=== PATIENT | male | born 1935 | race Caucasian/White ===

== ENCOUNTER 2016-06-25 15:55 | Emergency (ER) | payer MEDICARE, MEDICAID ==
[2016-06-25 16:17] VITALS: BP 169/70
--- NOTE | 2016-06-25 16:41 | EDM.PDOC ---
ED HPI Trauma - General Chief Complaint: Lower Extremity Injury/Pain Stated Complaint: PAIN IN LEG/HIP AREA Time Seen by Provider: 06/25/16 16:30 Source: Reports: Patient, Old records, RN, RN notes reviewed, Other ([facility] home care staff) History Limitations: Reports: Physical impairment (developmentally delayed) - History of Present Illness INITIAL COMMENTS - FREE TEXT/NARRATIVE: Patient is an 80-year-old developmentally delayed/disabled male who resides at the [facility] home. There was an unwitnessed fall 1 to 2 weeks ago after which the patient complained of right leg. He was seen in clinic by Dr. Aguila and had right lower extremity duplex ultrasound, which was negative for DVT. Imaging further revealed advanced chronic arthritic changes. Staff reports that the patient complained of left hip pain beginning yesterday. Continued reporting left hip pain today and refused to bear weight on the hip. They are not aware of any further falls or injuries. Patient is unable to provide any further history. Method of Injury: fall Severity: moderate Pain/Injury Location: Reports: pelvis, lower extremity, left Associated Symptoms: Reports: no other symptoms Allergies/ADRs: Allergies No Known Allergies Allergy (Verified 06/25/16 16:18) Home Medications: Ambulatory Orders Omeprazole [Omeprazole] 20 mg PO DAILY 06/12/14 [Confirmed 03/19/16] Simvastatin [Simvastatin] 20 mg PO DAILY 06/12/14 [Confirmed 03/19/16] Albuterol [Proventil Neb Soln] 2.5 mg NEB Q4H PRN 03/05/16 [Confirmed 03/19/16] Budesonide [Pulmicort] 1 unit INH BID 03/05/16 [Confirmed 03/19/16] Finasteride 5 mg PO DAILY 06/25/16 [Confirmed 06/25/16] Past Medical History Cardiovascular History: Reports: High cholesterol Respiratory History: Reports: COPD, Pneumonia, recurrent, TB, Other (see below) Other Respiratory History: HX OF ASPIRIATION PNEUMONIA Gastrointestinal History: Reports: GERD Genitourinary History: Reports: Prostate disorder Musculoskeletal History: Reports: Other (see below) Other Musculoskeletal History: ROTATOR CUFF TEAR Neurological History: Psychiatric History: Reports: Anxiety, Depression, Developmental delay, Learning disability, Other (see below) Other Psychiatric 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 Endocrine/Metabolic History: Reports: None Hematologic History: Reports: Anemia, Iron deficiency Immunologic History: Reports: None Oncologic (Cancer) History: Reports: Prostate - Infectious Disease History Other Infectious Disease History: unknown hx - Past Surgical History Head Surgeries/Procedures: Reports: None HEENT Surgical History: Reports: Cataract surgery Cardiovascular Surgical History: Reports: None GI Surgical History: Reports: Hernia, inguinal Social & Family History - Family History Family Medical History: Noncontributory - Tobacco Use Smoking Status *Q: Never Smoker Second Hand Smoke Exposure: No - Caffeine Use Caffeine Use: Reports: Coffee - Alcohol Use Days Per Week of Alcohol Use: 0 - Recreational Drug Use Recreational Drug Use: No - Living Situation & Occupation Living situation: Reports: other ([facility] home) Review of Systems - Review of Systems Review Of Systems: ROS reveals no pertinent complaints other than HPI. Trauma Exam - Physical Exam Exam: See Below Exam Limited By: Physical impairment General Appearance: Reports: alert, no apparent distress Head: Reports: atraumatic, normocephalic Respiratory Exam: Reports: no respiratory distress Cardiovascular: Reports: normal peripheral pulses GI/Abdominal: Reports: normal bowel sounds, soft, non tender (Male) Exam: Deferred Rectal (Males) Exam: Deferred Back: Reports: full range of motion, normal inspection, non-tender Extremities: Reports: tenderness (left hip and overlying left pubic rami region. ), unable to bear weight (on left hip.) Neurologic: Reports: no motor/sensory deficits, alert Course - Vital Signs Last Recorded V/S: Last Vital Signs Temp 37.0 C 06/25/16 16:15 Pulse 80 06/25/16 16:15 Resp 18 06/25/16 16:15 BP 169/70 H 06/25/16 16:15 Pulse Ox 98 06/25/16 16:15 - Radiology Interpretation Free Text/Narrative:: CT pelvis: Negative for fracture. See rad report. Departure - Departure Time of Disposition: 17:27 Disposition: Home, Self-Care 01 Condition: fair Clinical Impression: Left hip pain Instructions: Hip Pain Forms: ED Department Discharge Additional Instructions: Activity as tolerated. Tylenol or other over the counter pain medication as needed per current orders. Follow up in clinic in 5 days, if pain is not completely resolved.
--- NOTE | 2016-06-25 17:24 | CT ---
Clinical history: 80-year-old male injured in a fall (left hip and pubic rami pain). Scan technique: Volume acquisition of data emergency unenhanced CT scan of the pelvis and both hips obtained with patient lying supine on the Siemens multi slice CT scanner [facility]. All data archived in the PAC system for storage, reformatting axial/sagittal/cor onal planes and study. Interpretation: 1. Huge midline prostate gland. Probable chronic outlet obstruction (thickened urinary bladder wall) . 2. 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 3. Symmetric spacing normal-appearing SI and hip joints. No arthritic degenerative change. 4. *No sign of pathologic skeletal lesion, acute pelvic or either hip fracture/dislocation. CONCLUSION: No pubic rami or hip fractures. Chronic severe lower lumbar disc disease
== END 2016-06-25 17:58 | disposition home or self-care (01) ==
LOC: EDBD → DL.ED 15:55 → EDBD 15:55 → DL.ED 17:58
DX: M25.552 Pain in left hip (principal); E78.00 Pure hypercholesterolemia, unspecified; J44.9 Chronic obstructive pulmonary disease, unspecified; K21.9 Gastro-esophageal reflux disease without esophagitis; F41.9 Anxiety disorder, unspecified; F32.9 Major depressive disorder, single episode, unspecified; Z87.01 Personal history of pneumonia (recurrent); Z86.2 Personal history of diseases of the blood and blood-forming organs and certain disorders involving the immune mechanism; Z98.49 Cataract extraction status, unspecified eye
CPT/HCPCS: 72192; 99282; 99283

== ENCOUNTER 2018-05-03 16:20 | Inpatient (IN) | payer MEDICARE, MEDICAID ==
--- NOTE | 2018-05-03 17:36 | PCM.HP ---
H&P History of Present Illness - General Date of Service: 05/03/18 Source of Information: Other (assisted attnedant, PMD - Magdaleno Awad) - History of Present Illness Initial Comments - Free Text/Narative: The patient lives in a assisted. Has a history of frequent pneumonia. The patient is on soft diet with thin liquids. He was taken to the primary care doctor's office with complains of cough, sputum , decreased oral intake. No apparent fever No sick contact - Related Data Allergies/Adverse Reactions: Allergies Allergy/AdvReac Type Severity Reaction Status Date / Time No Known Allergies Allergy Verified 02/26/18 20:00 Home Medications: Home Meds Omeprazole 20 mg PO DAILY 06/12/14 [History] Simvastatin 20 mg PO DAILY 06/12/14 [History] Albuterol [Proventil Neb Soln] 2.5 mg NEB Q4H PRN 03/05/16 [History] Budesonide [Pulmicort] 1 unit INH BID 03/05/16 [History] Finasteride 5 mg PO DAILY 06/25/16 [History] Past Medical History Cardiovascular History: Reports: High Cholesterol Respiratory History: Reports: COPD, Pneumonia, Recurrent, TB, Other (See Below) Other Respiratory History: HX OF ASPIRIATION PNEUMONIA Gastrointestinal History: Reports: GERD Genitourinary History: Reports: Prostate Disorder Musculoskeletal History: Reports: Other (See Below) Other Musculoskeletal History: ROTATOR CUFF TEAR Neurological History: Psychiatric History: Reports: Anxiety, Depression, Developmental Delay, Learning Disability, Other (See Below) Other Psychiatric 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 Endocrine/Metabolic History: Reports: None Hematologic History: Reports: Anemia, Iron Deficiency Immunologic History: Reports: None Oncologic (Cancer) History: Reports: Prostate - Infectious Disease History Other Infectious Disease History: unknown hx - Past Surgical History Head Surgeries/Procedures: Reports: None HEENT Surgical History: Reports: Cataract Surgery GI Surgical History: Reports: Hernia, Inguinal Social & Family History - Family History Family Medical History: Noncontributory - Caffeine Use Caffeine Use: Reports: Soda - Living Situation & Occupation Living situation: Reports: Other H&P Review of Systems - Review of Systems: Review Of Systems: See Below (Per [facility] homecare) General: Reports: Malaise, Weakness. Denies: Fever, Chills HEENT: Reports: Sinus Congestion Pulmonary: Reports: Cough, Sputum. Denies: Shortness of Breath, Hemoptysis Cardiovascular: Denies: Chest Pain, Edema Gastrointestinal: Denies: Abdominal Pain Genitourinary: Denies: Dysuria, Hematuria Musculoskeletal: Denies: Muscle Pain Skin: Denies: Rash Psychiatric: Reports: Other (Chronic mental retardation, episodes of agitation) Exam - Exam Exam: See Below - Exam General: Alert. No: Oriented HEENT: Other (Nasal drainage) Neck: Supple Lungs: Clear to Auscultation, Normal Respiratory Effort. No: Rhonchi, Wheezing Cardiovascular: Regular Rate, Regular Rhythm GI/Abdominal Exam: Normal Bowel Sounds, Soft, Non-Tender Back Exam: Normal Inspection Extremities: No Pedal Edema - Patient Data Lab Results Last 24 hrs: Laboratory Results - last 24 hr 05/03/18 Range/Units 15:56 B-Natriuretic Peptide 139 H (0-100) pg/ml w g g Glucose random a a a a a a a a a a a a a a a a a a 110 a g Glucose random g w w Hematology o o WBC y y y y y y y y y y y y y y y y y y 14.24 y o WBC o o y Hgb w w w w w w w w w w w w w w w w w w 12.3 w y Hgb o o o MCV y y y y y y y y y y y y y y y y y y 83.9 y o MCV o o y Hct w w w w w w w w w w w w w w w w w w 37.4 w y Hct o o o Platelet Ct y y y y y y y y y y y y y y y y y y [address] o o y Polys w w w w w w w w w w w w w w w w w w 75.8 w y Polys o o o Lymphs y y y y y y y y y y y y y y y y y y 11.8 y o Lymphs o o y Monos w w w w w w w w w w w w w w w w w w 8.2 w y Monos o o o Eos y y y y y y y y y y y y y y y y y y 3.5 y o Eos o o y Basos w w w w w w w w w w w w w w w w w w 0.3 w y Basos o w w Chemistry r o Sodium o o o o o o o o o o o o o o o o o o 126 o o Sodium r r o Potassium w w w w w w w w w w w w w w w w w w 4.1 w o Potassium r r o Chloride o o o o o o o o o o o o o o o o o o 89 o o Chloride r r o CO2 w w w w w w w w w w w w w w w w w w 28.8 w o CO2 r r o BUN o o o o o o o o o o o o o o o o o o 9 o o BUN r r o Creat w w w w w w w w w w w w w w w w w w 0.8 w o Creat r r o Ca total o o o o o o o o o o o o o o o o o o 8.5 o o Ca total o Imaging Impressions Last 24 hrs: DATE OF STUDY: 05/03/2018 4:25 PM SEX: Male AGE:82 years STUDY: XR CHEST PA AND LATERAL HISTORY: 82-year-old 148 pound male with chronic obstructive pulmonary disease, prostate disease and now "chest congestion". COMPARISONS: 31 March 2018. FINDINGS: Increase posterior segment, RIGHT lower lobe atelectasis or infiltrate (aspiration?) since comparison exam 31 March 2018. Normal cardiac silhouette without alveolar edema or dependent effusion. No lung mass hilar lymphadenopathy or other focal lobar infiltrate (patchy atelectasis LEFT base). CONCLUSION: Abnormal, increased, pneumonic like consolidation behind the heart RIGHT base. Clinical? - Problem List (1) COPD (chronic obstructive pulmonary disease) SNOMED Code(s): 42030813 ICD Code: J44.9 - CHRONIC OBSTRUCTIVE PULMONARY DISEASE, UNSPECIFIED Status : Acute Current Visit: No Qualifiers: COPD type: unspecified COPD Qualified Code(s): J44.9 - Chronic obstructive pulmonary disease, unspecified (2) LLL pneumonia SNOMED Code(s): 304172406 ICD Code: J18.1 - LOBAR PNEUMONIA, UNSPECIFIED ORGANISM Status: Acute Current Visit: No Qualifiers: Pneumonia type: due to unspecified organism Qualified Code(s): J18.1 - Lobar pneumonia, unspecified organism Problem List Initiated/Reviewed/Updated: Yes Assessment/Plan Comment:: 82-year-old gentleman presented with cough, congestion, left lower lobe pneumonia on chest x-ray Left lower lobe pneumonia in a patient from the assisted, possible gram-negative pneumonia, Recent swallow evaluations did not show aspiration although there was concern about reflux dx We will obtain sputum culture Obtain blood culture Treat empirically with Zosyn and vancomycin COPD Treat with Pulmicort, scheduled DuoNeb Use as needed albuterol Soft diet as per assisted Continue proton pump inhibitor for GERD Dyslipidemia Continue statin Hyponatremia Likely hypovolemic due to not eating, drinking well in the past few days We'll give 1 L IV fluid Recheck in the morning DVT prophylaxis Subcutaneous heparin
[2018-05-03] MEDS ORDERED: Albuterol 0.083% 2.5 MG/3 ML Neb Soln NEB PRN ×2 (17:40→19:08)
[2018-05-03] MEDS ORDERED: Sodium Chloride 0.9% 10 ML Syringe FLUSH PRN (17:45)
[2018-05-03] MEDS ORDERED: Zolpidem 5 MG Tab PO PRN (17:45)
[2018-05-03] MEDS ORDERED: Docusate Sodium 100 MG Cap PO PRN (17:45)
[2018-05-03] MEDS ORDERED: Ibuprofen 400 MG Tab PO PRN (17:45)
[2018-05-03] MEDS ORDERED: Ondansetron 4 MG Tab.DIS PO PRN (17:45)
[2018-05-03] MEDS ORDERED: LORazepam 0.5 MG Tab PO PRN (17:48)
[2018-05-03] MEDS ORDERED: Sodium Chloride 0.9% 1,000 ML IV SCH (18:00)
[2018-05-03] MEDS: Piperacillin/Tazobactam 3.375 GM in Sodium Chloride 0.9% 100 ML IV SCH ×2 (20:29→23:56)
[2018-05-03] MEDS: Albuterol/Ipratropium 3.0-0.5 MG/3 ML Neb Soln NEB SCH (21:40)
[2018-05-03] MEDS: Heparin Sodium 5,000 Units/ML Vial SUBCUT SCH (21:40)
[2018-05-03] MEDS: Budesonide 0.5 MG/2 ML Neb Susp NEB SCH (21:40)
[2018-05-04] MEDS: Acetaminophen 325 MG Tab PO PRN (02:22)
[2018-05-04] MEDS: Heparin Sodium 5,000 Units/ML Vial SUBCUT SCH ×3 (05:15→22:27)
[2018-05-04] MEDS: Piperacillin/Tazobactam 3.375 GM in Sodium Chloride 0.9% 100 ML IV SCH ×4 (05:15→23:49)
[2018-05-04] MEDS: Omeprazole 20 MG Cap.CR PO SCH (05:15)
[2018-05-04 07:11] LABS: ANION GAP 15.6; CHLORIDE,CL 88 mmol/L (101-111); SODIUM,NA 124 mmol/L (135-145)
[2018-05-04] MEDS ORDERED: Non-Formulary Medication 1 Each (Simvastatin [Simvastatin] 20 MG) PO SCH (09:00)
[2018-05-04] MEDS ORDERED: Finasteride 5 MG Tab PO SCH (09:00)
[2018-05-04] MEDS: Budesonide 0.5 MG/2 ML Neb Susp NEB SCH ×2 (09:05→20:15)
[2018-05-04] MEDS: Albuterol/Ipratropium 3.0-0.5 MG/3 ML Neb Soln NEB SCH ×3 (09:05→20:15)
--- NOTE | 2018-05-04 12:41 | PCM.PN ---
- General Info Date of Service: 05/04/18 Subjective Update: continues to have productive cough associated with low grade fever no apparent pain limited info since pt is non verbal d/w assisted staff in room Functional Status: Reports: Pain Controlled, Tolerating Diet - Review of Systems General: Reports: Fever (low grade) Pulmonary: Denies: Shortness of Breath Cardiovascular: Denies: Chest Pain Neurological: Denies: Confusion - Patient Data Vitals - Most Recent: Last Vital Signs Temp 37.1 C 05/04/18 08:14 Pulse 72 05/04/18 08:14 Resp 20 05/04/18 08:14 BP 142/85 H 05/04/18 08:14 Pulse Ox 96 05/04/18 08:14 Weight - Most Recent: 65.726 kg I&O - Last 24 Hours: Intake & Output 05/03/18 05/04/18 05/04/18 22:59 06:59 14:59 Intake Total 240 350 Output Total 200 100 Balance 40 250 Lab Results Last 24 Hours: Laboratory Results - last 24 hr 05/03/18 05/04/18 05/04/18 Range/Units 15:56 05:40 05:40 WBC 11.0 H (5.0-10.0) 10^3/uL RBC 4.19 L (4.6-6.2) 10^6/uL Hgb 11.3 L D (14.0-18.0) g/dL Hct 35.3 L (40.0-54.0) % MCV 84.2 D (80-100) fL MCH 27.0 (27.0-34.0) pg MCHC 32.0 L (33.0-35.0) g/dL Plt Count 349 (150-450) 10^3/uL Neut % (Auto) 77.5 H (42.2-75.2) % Lymph % (Auto) 9.6 L (20.5-50.1) % [place] % (Auto) 11.6 H (2-8) % Eos % (Auto) 1.2 (1.0-3.0) % Baso % (Auto) 0.1 (0.0-1.0) % Sodium 124 L (135-145) mmol/L Potassium 3.6 (3.6-5.0) mmol/L Chloride 88 L (101-111) mmol/L Carbon Dioxide 24.0 (21.0-31.0) mmol/L Anion Gap 15.6 BUN 9 (7-18) mg/dL Creatinine 0.7 (0.6-1.3) mg/dL Est Cr Clr Drug Dosing 74.33 mL/min Estimated GFR (MDRD) > 60 Glucose 97 (74-105) mg/dL Calcium 7.4 L D (8.4-10.2) mg/dl B-Natriuretic Peptide 139 H (0-100) pg/ml Pete Results Last 24 Hours: Microbiology 05/03/18 03:00 Gram Stain - Final Sputum - Expectorated Med Orders - Current: Current Medications Acetaminophen (Tylenol) 650 mg PO Q4H PRN PRN Reason: Pain (Mild 1-3)/fever Last Admin: 05/04/18 02:22 Dose: 650 mg Albuterol (Proventil Neb Soln) 2.5 mg NEB Q6HRRT PRN PRN Reason: sob Albuterol/Ipratropium (Duoneb 3.0-0.5 Mg/3 Ml) 3 ml NEB TIDRT [facility] Last Admin: 05/04/18 09:05 Dose: 3 ml Budesonide (Pulmicort) 0.5 mg NEB BIDRT [facility] Last Admin: 05/04/18 09:05 Dose: 0.5 mg Docusate Sodium (Colace) 100 mg PO BID PRN PRN Reason: Constipation Heparin Sodium (Porcine) (Heparin Sodium) 5,000 units SUBCUT Q8HR [facility] Last Admin: 05/04/18 05:15 Dose: 5,000 units Piperacillin Sod/Tazobactam (Sod 3.375 gm/ Sodium Chloride) 100 mls @ 200 mls/ hr IV Q6H [facility] Last Admin: 05/04/18 05:15 Dose: 200 mls/hr Vancomycin HCl 1 gm/ Sodium (Chloride) 250 mls @ 166.667 mls/hr IV Q8H [facility] Last Admin: 05/04/18 10:45 Dose: 166.667 mls/hr Ibuprofen (Motrin) 400 mg PO Q6H PRN PRN Reason: Pain (Mod 4-6) Last Admin: 05/03/18 21:45 Dose: 400 mg Lorazepam (Ativan) 0.5 mg PO Q6H PRN PRN Reason: agitation, anxiety Omeprazole (Omeprazole) 20 mg PO DAILY@0600 [facility] Last Admin: 05/04/18 05:15 Dose: 20 mg Ondansetron HCl (Zofran Odt) 4 mg PO Q6H PRN PRN Reason: nausea, able to take PO Sodium Chloride (Saline Flush) 10 ml FLUSH ASDIRECTED PRN PRN Reason: Keep Vein Open Vancomycin HCl (Pharmacy To Dose - Vancomycin) 1 dose .XX ASDIRECTED [facility] Zolpidem Tartrate (Ambien) 5 mg PO BEDTIME PRN PRN Reason: Sleep Discontinued Medications Albuterol (Proventil Neb Soln) 2.5 mg NEB Q4H PRN PRN Reason: Wheezing, sob Finasteride (Proscar) 5 mg PO DAILY [facility] Sodium Chloride (Normal Saline) 1,000 mls @ 100 mls/hr IV ASDIRECTED [facility] Stop: 05/04/18 04:01 Last Admin: 05/03/18 20:29 Dose: 100 mls/hr Non-Formulary Medication (Simvastatin [Simvastatin]) 20 mg PO DAILY [facility] - Exam General: Alert. No: Oriented Neck: Supple Lungs: Normal Respiratory Effort, Rhonchi Cardiovascular: Regular Rate, Regular Rhythm GI/Abdominal Exam: Normal Bowel Sounds, Soft, Non-Tender Extremities: No Pedal Edema - Problem List & Annotations (1) COPD (chronic obstructive pulmonary disease) SNOMED Code(s): 77372726 Code(s): J44.9 - CHRONIC OBSTRUCTIVE PULMONARY DISEASE, UNSPECIFIED Status : Acute Current Visit: No Qualifiers: COPD type: unspecified COPD Qualified Code(s): J44.9 - Chronic obstructive pulmonary disease, unspecified (2) LLL pneumonia SNOMED Code(s): 940905308 Code(s): J18.1 - LOBAR PNEUMONIA, UNSPECIFIED ORGANISM Status: Acute Current Visit: No Qualifiers: Pneumonia type: due to unspecified organism Qualified Code(s): J18.1 - Lobar pneumonia, unspecified organism - Problem List Review Problem List Initiated/Reviewed/Updated: Yes - My Orders Last 24 Hours: My Active Orders 05/03/18 17:38 Blood Culture x2 Reflex Set [OM.PC] Stat 05/03/18 17:39 RT Aerosol Therapy [RC] 07,15,21 05/03/18 17:40 Albuterol [Proventil Neb Soln] 2.5 mg NEB Q6HRRT PRN 05/03/18 17:45 Patient Status [ADT] Routine Oxygen Therapy [RC] .PRN Up With Assistance [RC] ASDIRECTED VTE/DVT Education [RC] PER UNIT ROUTINE Vital Signs [RC] 00,04,08,12,16,20 Acetaminophen [Tylenol] 650 mg PO Q4H PRN Docusate Sodium [Colace] 100 mg PO BID PRN Ibuprofen [Motrin] 400 mg PO Q6H PRN Ondansetron [Zofran ODT] 4 mg PO Q6H PRN Pharmacy to Dose - Vancomycin 1 dose .XX ASDIRECTED Sodium Chloride 0.9% [Saline Flush] 10 ml FLUSH ASDIRECTED PRN Zolpidem [Ambien] 5 mg PO BEDTIME PRN Peripheral IV Insertion Adult [OM.PC] Routine Saline Lock Insert [OM.PC] Routine Resuscitation Status Routine 05/03/18 17:46 Antiembolic Hose [OM.PC] Per Unit Routine 05/03/18 17:47 Antiembolic Devices [RC] .PRN Peripheral IV Care [RC] 08,20 05/03/18 17:48 LORazepam [Ativan] 0.5 mg PO Q6H PRN 05/03/18 18:00 CULTURE BLOOD [BC] Stat Budesonide [Pulmicort] 0.5 mg NEB BIDRT Piperacillin/Tazobactam [Zosyn] 3.375 gm Sodium Chloride 0.9% [Normal Saline] 100 ml IV Q6H Vancomycin 1 gm Sodium Chloride 0.9% [Normal Saline] 250 ml IV Q8H 05/03/18 18:05 CULTURE BLOOD [BC] Stat 05/03/18 21:00 Albuterol/Ipratropium [DuoNeb 3.0-0.5 MG/3 ML] 3 ml NEB TIDRT 05/03/18 22:00 Heparin Sodium 5,000 units SUBCUT Q8HR 05/04/18 06:00 Omeprazole 20 mg PO DAILY@0600 05/05/18 05:15 BASIC METABOLIC PANEL,BMP [CHEM] AM CBC WITH AUTO DIFF [HEME] AM 05/05/18 17:30 VANCOMYCIN TROUGH [CHEM] Timed - Plan Plan:: 82-year-old gentleman presented with cough, congestion, left lower lobe pneumonia on chest x-ray Left lower lobe pneumonia in a patient from the assisted, possible gram-negative pneumonia, Recent swallow evaluations did not show aspiration although there was concern about reflux dx sputum culture: pending blood culture: pending Treat empirically with Zosyn and vancomycin COPD Treat with Pulmicort, scheduled DuoNeb Use as needed albuterol Soft diet as per assisted Continue proton pump inhibitor for GERD Dyslipidemia Continue statin Hyponatremia Likely hypovolemic due to not eating, drinking well in the past few days was given IV fluid - stop now Recheck in the morning DVT prophylaxis Subcutaneous heparin
[2018-05-04] MEDS: guaiFENesin 100 MG/5 ML Soln 5 ML UD Cup PO PRN (20:15)
[2018-05-05] MEDS: Acetaminophen 325 MG Tab PO PRN (03:11)
[2018-05-05] MEDS: guaiFENesin 100 MG/5 ML Soln 5 ML UD Cup PO PRN ×2 (03:12→13:23)
[2018-05-05] MEDS: Omeprazole 20 MG Cap.CR PO SCH (05:25)
[2018-05-05] MEDS: Heparin Sodium 5,000 Units/ML Vial SUBCUT SCH ×3 (05:25→21:30)
[2018-05-05] MEDS: Piperacillin/Tazobactam 3.375 GM in Sodium Chloride 0.9% 100 ML IV SCH ×4 (05:25→23:40)
[2018-05-05 07:05] LABS: ANION GAP 15.3; CHLORIDE,CL 95 mmol/L (101-111); SODIUM,NA 131 mmol/L (135-145)
[2018-05-05] MEDS: Budesonide 0.5 MG/2 ML Neb Susp NEB SCH ×2 (07:18→20:15)
[2018-05-05] MEDS: Albuterol/Ipratropium 3.0-0.5 MG/3 ML Neb Soln NEB SCH ×3 (07:18→20:15)
--- NOTE | 2018-05-05 11:42 | PCM.PN ---
- General Info Date of Service: 05/05/18 Subjective Update: continues to have productive cough but appear to be improving associated with low grade fever no apparent pain limited info since pt is non verbal d/w halfway staff in room eating fairly some mood swings - Review of Systems General: Denies: Fever, Weakness Pulmonary: Denies: Shortness of Breath, Wheezing Cardiovascular: Denies: Chest Pain Gastrointestinal: Denies: Abdominal Pain Neurological: Reports: Other (baseline behavior per Staff) - Patient Data Vitals - Most Recent: Last Vital Signs Temp 37.1 C 05/05/18 08:00 Pulse 83 05/05/18 08:00 Resp 20 05/05/18 08:00 BP 151/72 H 05/05/18 08:00 Pulse Ox 95 05/05/18 08:00 Weight - Most Recent: 65.726 kg I&O - Last 24 Hours: Intake & Output 05/04/18 05/05/18 05/05/18 22:59 06:59 14:59 Intake Total 250 102 420 Output Total 1000 200 Balance -750 -98 420 Lab Results Last 24 Hours: Laboratory Results - last 24 hr 05/05/18 05/05/18 Range/Units 06:00 06:00 WBC 12.5 H (5.0-10.0) 10^3/uL RBC 4.27 L (4.6-6.2) 10^6/uL Hgb 11.5 L (14.0-18.0) g/dL Hct 35.7 L (40.0-54.0) % MCV 83.6 (80-100) fL MCH 26.9 L (27.0-34.0) pg MCHC 32.2 L (33.0-35.0) g/dL Plt Count 399 (150-450) 10^3/uL Neut % (Auto) 76.9 H (42.2-75.2) % Lymph % (Auto) 10.4 L (20.5-50.1) % [place] % (Auto) 12.1 H (2-8) % Eos % (Auto) 0.4 L (1.0-3.0) % Baso % (Auto) 0.2 (0.0-1.0) % Sodium 131 L (135-145) mmol/L Potassium 3.3 L (3.6-5.0) mmol/L Chloride 95 L (101-111) mmol/L Carbon Dioxide 24.0 (21.0-31.0) mmol/L Anion Gap 15.3 BUN 5 L (7-18) mg/dL Creatinine 0.7 (0.6-1.3) mg/dL Est Cr Clr Drug Dosing 74.33 mL/min Estimated GFR (MDRD) > 60 Glucose 95 (74-105) mg/dL Calcium 7.3 L (8.4-10.2) mg/dl Pete Results Last 24 Hours: Microbiology 05/03/18 03:00 Gram Stain - Final Sputum - Expectorated Sputum Culture - Preliminary Normal Mildred 05/03/18 18:05 Aerobic Blood Culture - Preliminary Blood - Venous - Lab Draw NO GROWTH AFTER 1 DAY Anaerobic Blood Culture - Preliminary NO GROWTH AFTER 1 DAY 05/03/18 18:00 Aerobic Blood Culture - Preliminary Blood - Venous NO GROWTH AFTER 1 DAY Anaerobic Blood Culture - Preliminary NO GROWTH AFTER 1 DAY Med Orders - Current: Current Medications Acetaminophen (Tylenol) 650 mg PO Q4H PRN PRN Reason: Pain (Mild 1-3)/fever Last Admin: 05/05/18 03:11 Dose: 650 mg Albuterol (Proventil Neb Soln) 2.5 mg NEB Q6HRRT PRN PRN Reason: sob Albuterol/Ipratropium (Duoneb 3.0-0.5 Mg/3 Ml) 3 ml NEB TIDRT [facility] Last Admin: 05/05/18 07:18 Dose: 3 ml Budesonide (Pulmicort) 0.5 mg NEB BID@0700,2100 [facility] Last Admin: 05/05/18 07:18 Dose: 0.5 mg Docusate Sodium (Colace) 100 mg PO BID PRN PRN Reason: Constipation Guaifenesin (Robitussin) 200 mg PO Q4H PRN PRN Reason: Cough Last Admin: 05/05/18 03:12 Dose: 200 mg Heparin Sodium (Porcine) (Heparin Sodium) 5,000 units SUBCUT Q8HR [facility] Last Admin: 05/05/18 05:25 Dose: 5,000 units Piperacillin Sod/Tazobactam (Sod 3.375 gm/ Sodium Chloride) 100 mls @ 200 mls/ hr IV Q6H [facility] Last Admin: 05/05/18 05:25 Dose: 200 mls/hr Vancomycin HCl 1 gm/ Sodium (Chloride) 250 mls @ 166.667 mls/hr IV Q8H [facility] Last Admin: 05/05/18 10:16 Dose: 166.667 mls/hr Ibuprofen (Motrin) 400 mg PO Q6H PRN PRN Reason: Pain (Mod 4-6) Last Admin: 05/03/18 21:45 Dose: 400 mg Lorazepam (Ativan) 0.5 mg PO Q6H PRN PRN Reason: agitation, anxiety Omeprazole (Omeprazole) 20 mg PO DAILY@0600 [facility] Last Admin: 05/05/18 05:25 Dose: 20 mg Ondansetron HCl (Zofran Odt) 4 mg PO Q6H PRN PRN Reason: nausea, able to take PO Sodium Chloride (Saline Flush) 10 ml FLUSH ASDIRECTED PRN PRN Reason: Keep Vein Open Vancomycin HCl (Pharmacy To Dose - Vancomycin) 1 dose .XX ASDIRECTED [facility] Zolpidem Tartrate (Ambien) 5 mg PO BEDTIME PRN PRN Reason: Sleep Discontinued Medications Albuterol (Proventil Neb Soln) 2.5 mg NEB Q4H PRN PRN Reason: Wheezing, sob Budesonide (Pulmicort) 0.5 mg NEB BIDRT [facility] Last Admin: 05/04/18 09:05 Dose: 0.5 mg Finasteride (Proscar) 5 mg PO DAILY [facility] Sodium Chloride (Normal Saline) 1,000 mls @ 100 mls/hr IV ASDIRECTED [facility] Stop: 05/04/18 04:01 Last Admin: 05/03/18 20:29 Dose: 100 mls/hr Non-Formulary Medication (Simvastatin [Simvastatin]) 20 mg PO DAILY [facility] - Exam General: Alert. No: Oriented Neck: Supple Lungs: Normal Respiratory Effort, Rhonchi Cardiovascular: Regular Rate, Regular Rhythm GI/Abdominal Exam: Normal Bowel Sounds, Soft, Non-Tender Extremities: No Pedal Edema Psy/Mental Status: Alert, Other (baseline behavior per halfway staff) - Problem List & Annotations (1) COPD (chronic obstructive pulmonary disease) SNOMED Code(s): 92937663 Code(s): J44.9 - CHRONIC OBSTRUCTIVE PULMONARY DISEASE, UNSPECIFIED Status : Acute Current Visit: No Qualifiers: COPD type: unspecified COPD Qualified Code(s): J44.9 - Chronic obstructive pulmonary disease, unspecified (2) LLL pneumonia SNOMED Code(s): 813445600 Code(s): J18.1 - LOBAR PNEUMONIA, UNSPECIFIED ORGANISM Status: Acute Current Visit: No Qualifiers: Pneumonia type: due to unspecified organism Qualified Code(s): J18.1 - Lobar pneumonia, unspecified organism - Problem List Review Problem List Initiated/Reviewed/Updated: Yes - My Orders Last 24 Hours: My Active Orders 05/04/18 19:14 guaiFENesin [Robitussin] 200 mg PO Q4H PRN 05/04/18 21:00 Budesonide [Pulmicort] 0.5 mg NEB BID@0700,2100 05/05/18 11:40 Potassium Chloride [Klor-Con 10] 40 meq PO ONETIME ONE 05/05/18 17:30 VANCOMYCIN TROUGH [CHEM] Timed 05/06/18 05:15 BASIC METABOLIC PANEL,BMP [CHEM] AM CBC WITH AUTO DIFF [HEME] AM - Plan Plan:: 82-year-old gentleman presented with cough, congestion, left lower lobe pneumonia on chest x-ray Left lower lobe pneumonia in a patient from the halfway, possible gram-negative pneumonia, Recent swallow evaluations did not show aspiration although there was concern about reflux dx, gerd sputum culture: neg blood culture: neg for now Treat empirically with Zosyn and vancomycin COPD Treat with Pulmicort, scheduled DuoNeb Use as needed albuterol Soft diet as per halfway Continue proton pump inhibitor for GERD Dyslipidemia Continue statin Hyponatremia Likely hypovolemic due to not eating, drinking well in the past few days was given IV fluid - stopped improved Recheck in the morning DVT prophylaxis Subcutaneous heparin
[2018-05-05] MEDS ORDERED: Potassium Chloride 10 MEQ Tab.ER PO ONE (12:00)
[2018-05-06] MEDS: Heparin Sodium 5,000 Units/ML Vial SUBCUT SCH (05:22)
[2018-05-06] MEDS: Omeprazole 20 MG Cap.CR PO SCH (05:23)
[2018-05-06] MEDS: Piperacillin/Tazobactam 3.375 GM in Sodium Chloride 0.9% 100 ML IV SCH (05:23)
[2018-05-06 06:56] LABS: ANION GAP 15.3; CHLORIDE,CL 99 mmol/L (101-111); SODIUM,NA 135 mmol/L (135-145)
[2018-05-06] MEDS: Budesonide 0.5 MG/2 ML Neb Susp NEB SCH (07:15)
[2018-05-06] MEDS: Albuterol/Ipratropium 3.0-0.5 MG/3 ML Neb Soln NEB SCH (07:15)
[2018-05-06 07:41] VITALS: BP 151/76
[2018-05-06] MEDS: Acetaminophen 325 MG Tab PO PRN (08:13)
--- NOTE | 2018-05-06 11:30 | PCM.DCSUM1 ---
Discharge Summary - Hospital Course Free Text/Narrative:: 82 yo M admitted with left lower lobe pneumonia. Was managed with IV abx and transitioned to oral abx. Follow up with PCP. - Discharge Data Discharge Date: 05/06/18 Discharge Disposition: Home, Self-Care 01 Condition: Fair - Patient Instructions Diet: Usual Diet as Tolerated Activity: As Tolerated - Discharge Plan Prescriptions/Med Rec: Amoxicillin/Potassium Clav [Augmentin 875-125 Tablet] 1 each PO BID 7 Days #14 tablet Home Medications: Home Meds Omeprazole 20 mg PO ACBREAKFAST 06/12/14 [History] Albuterol [Proventil Neb Soln] 2.5 mg NEB Q4H PRN 03/05/16 [History] Budesonide [Pulmicort] 2 ml INH BEDTIME 03/05/16 [History] Acetaminophen [Pain & Fever] 1,000 mg PO BID 05/03/18 [History] Calcium Carbonate/Vitamin D3 [Caltrate 600+D 1500 MG-400 Units] 1 tab PO BIDMEALS 05/03/18 [History] Leuprolide [Lupron Depot 4-Month] 30 mg IM .[id number] 05/03/18 [History] Trospium Chloride 20 mg PO BID 05/03/18 [History] Amoxicillin/Potassium Clav [Augmentin 875-125 Tablet] 1 each PO BID 7 Days #14 tablet 05/06/18 [Rx] Patient Handouts: Community-Acquired Pneumonia, Adult, [id number] - Discharge Summary/Plan Comment DC Time >30 min.: Yes - General Info Admission Dx/Problem (Free Text: pneumonia Subjective Update: non-verbal, baseline - Review of Systems General: Reports: No Symptoms HEENT: Reports: No Symptoms Pulmonary: Reports: No Symptoms Cardiovascular: Reports: No Symptoms Gastrointestinal: Reports: No Symptoms Genitourinary: Reports: No Symptoms - Patient Data Vitals - Most Recent: Last Vital Signs Temp 36.4 C 05/06/18 07:40 Pulse 78 05/06/18 07:40 Resp 20 05/06/18 07:40 BP 151/76 H 05/06/18 07:40 Pulse Ox 93 L 05/06/18 07:40 Weight - Most Recent: 65.726 kg I&O - Last 24 hours: Intake & Output 05/05/18 05/06/18 05/06/18 22:59 06:59 14:59 Intake Total 606 355 480 Output Total 700 450 Balance -94 -95 480 Lab Results - Last 24 hrs: Laboratory Results - last 24 hr 05/05/18 05/06/18 05/06/18 Range/Units 17:40 06:00 06:00 WBC 8.9 (5.0-10.0) 10^3/uL RBC 4.07 L (4.6-6.2) 10^6/uL Hgb 11.0 L (14.0-18.0) g/dL Hct 34.5 L (40.0-54.0) % MCV 84.8 (80-100) fL MCH 27.0 (27.0-34.0) pg MCHC 31.9 L (33.0-35.0) g/dL Plt Count 427 (150-450) 10^3/uL Neut % (Auto) 70.4 (42.2-75.2) % Lymph % (Auto) 13.5 L (20.5-50.1) % [place] % (Auto) 13.2 H (2-8) % Eos % (Auto) 2.7 (1.0-3.0) % Baso % (Auto) 0.2 (0.0-1.0) % Add Manual Diff Yes Neutrophils % (Manual) 76 H (42-75) % Band Neutrophils % 1 % Lymphocytes % (Manual) 9 L (20-50) % Monocytes % (Manual) 12 H (2-8) % Eosinophils % (Manual) 2 (1-3) % Sodium 135 (135-145) mmol/L Potassium 3.3 L (3.6-5.0) mmol/L Chloride 99 L (101-111) mmol/L Carbon Dioxide 24.0 (21.0-31.0) mmol/L Anion Gap 15.3 BUN 6 L (7-18) mg/dL Creatinine 0.8 (0.6-1.3) mg/dL Est Cr Clr Drug Dosing 65.04 mL/min Estimated GFR (MDRD) > 60 Glucose 94 (74-105) mg/dL Calcium 7.2 L (8.4-10.2) mg/dl Vancomycin Trough 17.1 H (10-15) ug/ml JOSE Results - Last 24 hrs: Microbiology 05/03/18 18:05 Aerobic Blood Culture - Preliminary Blood - Venous - Lab Draw NO GROWTH AFTER 2 DAYS Anaerobic Blood Culture - Preliminary NO GROWTH AFTER 2 DAYS 05/03/18 18:00 Aerobic Blood Culture - Preliminary Blood - Venous NO GROWTH AFTER 2 DAYS Anaerobic Blood Culture - Preliminary NO GROWTH AFTER 2 DAYS 05/03/18 03:00 Gram Stain - Final Sputum - Expectorated Sputum Culture - Preliminary Normal Mildred Med Orders - Current: Current Medications Acetaminophen (Tylenol) 650 mg PO Q4H PRN PRN Reason: Pain (Mild 1-3)/fever Last Admin: 05/06/18 08:13 Dose: 650 mg Albuterol (Proventil Neb Soln) 2.5 mg NEB Q6HRRT PRN PRN Reason: sob Albuterol/Ipratropium (Duoneb 3.0-0.5 Mg/3 Ml) 3 ml NEB TIDRT [facility] Last Admin: 05/06/18 07:15 Dose: 3 ml Budesonide (Pulmicort) 0.5 mg NEB BID@0700,2100 [facility] Last Admin: 05/06/18 07:15 Dose: 0.5 mg Docusate Sodium (Colace) 100 mg PO BID PRN PRN Reason: Constipation Guaifenesin (Robitussin) 200 mg PO Q4H PRN PRN Reason: Cough Last Admin: 05/05/18 13:23 Dose: 100 mg Heparin Sodium (Porcine) (Heparin Sodium) 5,000 units SUBCUT Q8HR [facility] Last Admin: 05/06/18 05:22 Dose: 5,000 units Piperacillin Sod/Tazobactam (Sod 3.375 gm/ Sodium Chloride) 100 mls @ 200 mls/ hr IV Q6H [facility] Last Infusion: 05/06/18 07:27 Dose: Infused Vancomycin HCl 1 gm/ Sodium (Chloride) 250 mls @ 166.667 mls/hr IV Q8H [facility] Last Admin: 05/06/18 09:54 Dose: 166.667 mls/hr Ibuprofen (Motrin) 400 mg PO Q6H PRN PRN Reason: Pain (Mod 4-6) Last Admin: 05/03/18 21:45 Dose: 400 mg Lorazepam (Ativan) 0.5 mg PO Q6H PRN PRN Reason: agitation, anxiety Omeprazole (Omeprazole) 20 mg PO DAILY@0600 [facility] Last Admin: 05/06/18 05:23 Dose: 20 mg Ondansetron HCl (Zofran Odt) 4 mg PO Q6H PRN PRN Reason: nausea, able to take PO Sodium Chloride (Saline Flush) 10 ml FLUSH ASDIRECTED PRN PRN Reason: Keep Vein Open Last Admin: 05/05/18 16:59 Dose: 10 ml Vancomycin HCl (Pharmacy To Dose - Vancomycin) 1 dose .XX ASDIRECTED [facility] Zolpidem Tartrate (Ambien) 5 mg PO BEDTIME PRN PRN Reason: Sleep Discontinued Medications Albuterol (Proventil Neb Soln) 2.5 mg NEB Q4H PRN PRN Reason: Wheezing, sob Budesonide (Pulmicort) 0.5 mg NEB BIDRT [facility] Last Admin: 05/04/18 09:05 Dose: 0.5 mg Finasteride (Proscar) 5 mg PO DAILY [facility] Sodium Chloride (Normal Saline) 1,000 mls @ 100 mls/hr IV ASDIRECTED [facility] Stop: 05/04/18 04:01 Last Admin: 05/03/18 20:29 Dose: 100 mls/hr Non-Formulary Medication (Simvastatin [Simvastatin]) 20 mg PO DAILY [facility] Potassium Chloride (Klor-Con 10) 40 meq PO ONETIME ONE Stop: 05/05/18 12:01 Last Admin: 05/05/18 13:20 Dose: 20 meq - Exam General: Reports: Alert, Oriented HEENT: Reports: Pupils Equal Neck: Reports: Supple Lungs: Reports: Clear to Auscultation Cardiovascular: Reports: Regular Rate, Regular Rhythm
== END 2018-05-06 11:41 | disposition home or self-care (01) | DRG 194 ==
LOC: DL.NPLAB 16:20 → UNDOADMIN 17:02 → DL.MS 17:02
PROVIDERS: ADMIT Internal Medicine; ATTEND Internal Medicine
DX: J18.1 Lobar pneumonia, unspecified organism (principal); J44.0 Chronic obstructive pulmonary disease with (acute) lower respiratory infection; E87.1 Hypo-osmolality and hyponatremia; E78.00 Pure hypercholesterolemia, unspecified; K21.9 Gastro-esophageal reflux disease without esophagitis; F41.9 Anxiety disorder, unspecified; F32.9 Major depressive disorder, single episode, unspecified; R62.50 Unspecified lack of expected normal physiological development in childhood; N42.9 Disorder of prostate, unspecified; F81.9 Developmental disorder of scholastic skills, unspecified; F79 Unspecified intellectual disabilities; D50.9 Iron deficiency anemia, unspecified; E78.5 Hyperlipidemia, unspecified; E86.1 Hypovolemia; Z79.899 Other long term (current) drug therapy; Z98.49 Cataract extraction status, unspecified eye
CPT/HCPCS: 36415; 80048; 80202; 83880; 85025; 87040; 87070; 87205; 94640; A9270-GY; J1644; J2543; J3370; J7030; J7050; J7620-GY

== ENCOUNTER 2018-05-07 10:53 | Emergency (ER) | payer MEDICARE, MEDICAID ==
[2018-05-07 12:00] VITALS: BP 158/65
[2018-05-07 12:35] LABS: ANION GAP 14.2; CHLORIDE,CL 97 mmol/L (101-111); SODIUM,NA 133 mmol/L (135-145)
--- NOTE | 2018-05-07 12:40 | CR ---
Clinical history: 82-year-old male shortness of breath. Interpretation: Patchy atelectasis left base appears to be present on 26 February 2018 exam. Normal cardiac silhouette without new signs of alveolar edema or dependent pleural fluid accumulation. No new lung mass, hilar lymphadenopathy or focal lobar pneumonia.
--- NOTE | 2018-05-07 13:34 | EDM.PDOC ---
ED HPI GENERAL MEDICAL PROBLEM - General Chief Complaint: General Stated Complaint: HAS BEEN SICK NOT GETTING BETTER Time Seen by Provider: 05/07/18 12:20 Source of Information: Reports: Patient, Other History Limitations: Reports: No Limitations - History of Present Illness INITIAL COMMENTS - FREE TEXT/NARRATIVE: This 82 yo male patient reports to the ED from [facility] due to an increased cough, not swallowing his oral antibiotics and worsening of his condition. The patient was discharged from [facility] yesterday after a 4 day stay. Onset: Gradual Duration: Day(s):, Constant, Getting Worse Location: Reports: Chest Quality: Reports: Other Severity: Moderate Improves with: Reports: None Worsens with: Reports: None Context: Reports: Other Associated Symptoms: Reports: cough w sputum, Nausea/Vomiting, Shortness of Breath - Related Data Allergies Allergy/AdvReac Type Severity Reaction Status Date / Time No Known Allergies Allergy Verified 05/07/18 11:55 Home Meds: Home Meds Omeprazole 20 mg PO ACBREAKFAST 06/12/14 [History] Albuterol [Proventil Neb Soln] 2.5 mg NEB Q4H PRN 03/05/16 [History] Budesonide [Pulmicort] 2 ml INH BEDTIME 03/05/16 [History] Acetaminophen [Pain & Fever] 1,000 mg PO BID 05/03/18 [History] Calcium Carbonate/Vitamin D3 [Caltrate 600+D 1500 MG-400 Units] 1 tab PO BIDMEALS 05/03/18 [History] Leuprolide [Lupron Depot 4-Month] 30 mg IM .[id number] 05/03/18 [History] Trospium Chloride 20 mg PO BID 05/03/18 [History] Amoxicillin/Potassium Clav [Augmentin 875-125 Tablet] 1 each PO BID 7 Days #14 tablet 05/06/18 [Rx] Past Medical History HEENT History: Reports: Impaired Vision Cardiovascular History: Reports: High Cholesterol Respiratory History: Reports: COPD, Pneumonia, Recurrent, TB, Other (See Below) Other Respiratory History: HX OF ASPIRIATION PNEUMONIA Gastrointestinal History: Reports: GERD Genitourinary History: Reports: Prostate Disorder Musculoskeletal History: Reports: Other (See Below) Other Musculoskeletal History: ROTATOR CUFF TEAR Neurological History: Reports: None Psychiatric History: Reports: Anxiety, Depression, Developmental Delay, Learning Disability, Other (See Below) Other Psychiatric 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 Endocrine/Metabolic History: Reports: None Hematologic History: Reports: Anemia, Iron Deficiency Immunologic History: Reports: None Oncologic (Cancer) History: Reports: Prostate Dermatologic History: Reports: None - Infectious Disease History Infectious Disease History: Reports: None Other Infectious Disease History: unknown hx - Past Surgical History Head Surgeries/Procedures: Reports: None HEENT Surgical History: Reports: Cataract Surgery GI Surgical History: Reports: Hernia, Inguinal Social & Family History - Family History Family Medical History: Noncontributory - Tobacco Use Smoking Status *Q: Never Smoker Second Hand Smoke Exposure: No - Caffeine Use Caffeine Use: Reports: Soda - Recreational Drug Use Recreational Drug Use: No - Living Situation & Occupation Living situation: Reports: Other ED ROS GENERAL - Review of Systems Review Of Systems: ROS reveals no pertinent complaints other than HPI. ED EXAM, GENERAL - Physical Exam Exam: See Below Exam Limited By: No Limitations General Appearance: Alert, WD/WN, Moderate Distress Eye Exam: Bilateral Eye: EOMI, Normal Inspection, PERRL Ears: Normal External Exam, Normal Canal, Hearing Grossly Normal, Normal TMs Nose: Normal Inspection, Normal Mucosa, No Blood Throat/Mouth: Normal Inspection Head: Atraumatic Neck: Normal Inspection, Supple, Non-Tender, Full Range of Motion Respiratory/Chest: Rhonchi (diffuse increased in left lower lobe) Cardiovascular: Normal Peripheral Pulses, Regular Rate, Rhythm, No Edema, No Gallop, No JVD, No Murmur, No Rub GI/Abdominal: Normal Bowel Sounds, Soft, Non-Tender, No Organomegaly, No Distention, No Abnormal Bruit, No Mass (Male) Exam: Deferred Rectal (Males) Exam: Deferred Back Exam: Normal Inspection, Full Range of Motion, NT Neurological: Alert, Oriented, CN II-XII Intact, Normal Cognition, Normal Gait, Normal Reflexes, No Motor/Sensory Deficits Skin Exam: Warm, Dry, Intact, Normal Color, No Rash Lymphatic: No Adenopathy Course - Vital Signs Last Recorded V/S: Last Vital Signs Temp 36.9 C 05/07/18 11:59 Pulse 69 05/07/18 11:59 Resp 24 H 05/07/18 11:59 BP 158/65 H 05/07/18 11:59 Pulse Ox 95 05/07/18 11:59 - Orders/Labs/Meds Orders: Active Orders 24 hr Category Date Time Status CULTURE BLOOD [BC] Stat Lab 05/07/18 12:08 Received UA RFX JOSE AND CULT IF INDIC [URIN] Urgent Lab 05/07/18 11:54 Ordered Labs: Laboratory Tests 05/07/18 05/07/18 05/07/18 Range/Units 12:08 12:08 12:08 WBC 12.8 H (5.0-10.0) 10^3/uL RBC 4.63 (4.6-6.2) 10^6/uL Hgb 12.7 L D (14.0-18.0) g/dL Hct 39.5 L (40.0-54.0) % MCV 85.3 (80-100) fL MCH 27.4 (27.0-34.0) pg MCHC 32.2 L (33.0-35.0) g/dL Plt Count 559 H D (150-450) 10^3/uL Neut % (Auto) 71.0 (42.2-75.2) % Lymph % (Auto) 13.2 L (20.5-50.1) % [place] % (Auto) 11.1 H (2-8) % Eos % (Auto) 4.5 H (1.0-3.0) % Baso % (Auto) 0.2 (0.0-1.0) % Add Manual Diff Yes Neutrophils % (Manual) 77 H (42-75) % Lymphocytes % (Manual) 15 L (20-50) % Monocytes % (Manual) 7 (2-8) % Eosinophils % (Manual) 1 (1-3) % Sodium 133 L (135-145) mmol/L Potassium 3.2 L (3.6-5.0) mmol/L Chloride 97 L (101-111) mmol/L Carbon Dioxide 25.0 (21.0-31.0) mmol/L Anion Gap 14.2 BUN 9 (7-18) mg/dL Creatinine 0.8 (0.6-1.3) mg/dL Est Cr Clr Drug Dosing 67.33 mL/min Estimated GFR (MDRD) > 60 BUN/Creatinine Ratio 11.25 Glucose 104 (74-105) mg/dL Lactic Acid 0.8 (0.5-2.2) mmol/L Calcium 7.7 L (8.4-10.2) mg/dl Total Bilirubin 0.7 (0.2-1.0) mg/dL AST 17 (10-42) IU/L ALT 21 (10-60) IU/L Alkaline Phosphatase 117 (42-121) IU/L Total Protein 6.7 (6.7-8.2) g/dl Albumin 2.8 L (3.2-5.5) g/dl Globulin 3.9 Albumin/Globulin Ratio 0.72 - Re-Assessments/Exams Free Text/Narrative Re-Assessment/Exam: 05/07/18 13:31 Discussed the patient history, examination, lab and x-ray results with Dr. Plaza. Dr. Plaza advised to have the patient transferred to [place] for a swallow study. Spoke with the patient's guardian (Keira Rojas) who agreed to have the patient transferred to [facility] in [place] for continued evaluation and management. Departure - Departure Time of Disposition: 13:33 Disposition: DC/Tfer to [facility] 02 Condition: Fair Clinical Impression: Dysphagia LLL pneumonia Qualifiers: Pneumonia type: due to unspecified organism Qualified Code(s): J18.1 - Lobar pneumonia, unspecified organism - Discharge Information *PRESCRIPTION DRUG MONITORING PROGRAM REVIEWED*: Not Applicable *COPY OF PRESCRIPTION DRUG MONITORING REPORT IN PATIENT BRINDA: Not Applicable Forms: Interfacility Transfer EMTALA Care Plan Goals: Discussed the patient's history, examination, lab and x-ray results with Dr. Dick. Dr. Dick accepted the patient for continued evaluation and further management at [facility]. The patient will be transported by [facility]. - My Orders Last 24 Hours: My Active Orders 05/07/18 11:54 UA RFX JOSE AND CULT IF INDIC [URIN] Urgent 05/07/18 12:08 CULTURE BLOOD [BC] Stat - Assessment/Plan Last 24 Hours: My Active Orders 05/07/18 11:54 UA RFX JOSE AND CULT IF INDIC [URIN] Urgent 05/07/18 12:08 CULTURE BLOOD [BC] Stat
== END 2018-05-07 13:43 ==
LOC: DL.ED 10:53
DX: J18.1 Lobar pneumonia, unspecified organism (principal); R13.10 Dysphagia, unspecified; J44.9 Chronic obstructive pulmonary disease, unspecified; E78.00 Pure hypercholesterolemia, unspecified; K21.9 Gastro-esophageal reflux disease without esophagitis; F41.9 Anxiety disorder, unspecified; F32.9 Major depressive disorder, single episode, unspecified; Z79.899 Other long term (current) drug therapy
CPT/HCPCS: 36415; 71046; 80053; 83605; 85025; 87040; 99285

== ENCOUNTER 2018-07-28 19:28 | Emergency (ER) | payer MEDICARE, MEDICAID ==
[2018-07-28 19:36] VITALS: BP 158/79
--- NOTE | 2018-07-28 20:45 | EDM.PDOC ---
ED HPI GENERAL MEDICAL PROBLEM - General Chief Complaint: Lower Extremity Injury/Pain Stated Complaint: AMBULANCE Time Seen by Provider: 07/28/18 19:30 Source of Information: Reports: EMS History Limitations: Reports: No Limitations - History of Present Illness INITIAL COMMENTS - FREE TEXT/NARRATIVE: ED via [facility] for evaluation, [facility]. 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 Did not fall, caught by staff. Report that patient initially c/o pain to hip. After, patient ate supper then walked with walker from table to TV room. On arrival patient points to hips as area of pain. Unable to detrine which as each time patient asked he switches location. - Related Data Allergies Allergy/AdvReac Type Severity Reaction Status Date / Time No Known Allergies Allergy Verified 05/07/18 11:55 Home Meds: Home Meds Omeprazole 20 mg PO ACBREAKFAST 06/12/14 [History] Albuterol [Proventil Neb Soln] 2.5 mg NEB Q4H PRN 03/05/16 [History] Budesonide [Pulmicort] 2 ml INH BEDTIME 03/05/16 [History] Acetaminophen [Pain & Fever] 1,000 mg PO BID 05/03/18 [History] Calcium Carbonate/Vitamin D3 [Caltrate 600+D 1500 MG-400 Units] 1 tab PO BIDMEALS 05/03/18 [History] Leuprolide [Lupron Depot 4-Month] 30 mg IM .[id number] 05/03/18 [History] Trospium Chloride 20 mg PO BID 05/03/18 [History] Amoxicillin/Potassium Clav [Augmentin 875-125 Tablet] 1 each PO BID 7 Days #14 tablet 05/06/18 [Rx] Past Medical History HEENT History: Reports: Impaired Vision Cardiovascular History: Reports: High Cholesterol Respiratory History: Reports: COPD, Pneumonia, Recurrent, TB, Other (See Below) Other Respiratory History: HX OF ASPIRIATION PNEUMONIA Gastrointestinal History: Reports: GERD Genitourinary History: Reports: Prostate Disorder Musculoskeletal History: Reports: Other (See Below) Other Musculoskeletal History: ROTATOR CUFF TEAR Neurological History: Reports: None Psychiatric History: Reports: Anxiety, Depression, Developmental Delay, Learning Disability, Other (See Below) Other Psychiatric 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 Endocrine/Metabolic History: Reports: None Hematologic History: Reports: Anemia, Iron Deficiency Immunologic History: Reports: None Oncologic (Cancer) History: Reports: Prostate Dermatologic History: Reports: None - Infectious Disease History Infectious Disease History: Reports: None Other Infectious Disease History: unknown hx - Past Surgical History Head Surgeries/Procedures: Reports: None HEENT Surgical History: Reports: Cataract Surgery GI Surgical History: Reports: Hernia, Inguinal Social & Family History - Family History Family Medical History: Noncontributory - Tobacco Use Smoking Status *Q: Unknown Ever Smoked - Caffeine Use Caffeine Use: Reports: Coffee - Recreational Drug Use Recreational Drug Use: No - Living Situation & Occupation Living situation: Reports: Other Review of Systems - Review of Systems Review Of Systems: ROS reveals no pertinent complaints other than HPI. ED EXAM, GENERAL - Physical Exam Exam: See Below Exam Limited By: No Limitations General Appearance: Alert, No Apparent Distress, Anxious Eye Exam: Bilateral Eye: EOMI Ears: Normal External Exam Nose: Normal Inspection Throat/Mouth: Normal Inspection Head: Atraumatic, Normocephalic Neck: Normal Inspection Respiratory/Chest: No Respiratory Distress, Lungs Clear, Normal Breath Sounds Cardiovascular: Normal Peripheral Pulses, Regular Rate, Rhythm GI/Abdominal: Normal Bowel Sounds Back Exam: Normal Inspection Extremities: Normal Inspection, Non-Tender, No Pedal Edema, Other (No shortening or external/ internal rotation. ) Course - Vital Signs Last Recorded V/S: Last Vital Signs Temp 98 F 07/28/18 19:28 Pulse 83 07/28/18 19:28 Resp 16 07/28/18 19:28 BP 158/79 H 07/28/18 19:28 Pulse Ox 97 07/28/18 19:28 - Radiology Interpretation Free Text/Narrative:: Pelvis CT negative Departure - Departure Time of Disposition: 20:43 Disposition: DC/Tfer to [facility] Condition: Good Clinical Impression: Fall - Discharge Information *PRESCRIPTION DRUG MONITORING PROGRAM REVIEWED*: No *COPY OF PRESCRIPTION DRUG MONITORING REPORT IN PATIENT BRINDA: No Instructions: Hip Pain Referrals: PCP,None [Primary Care Provider] - Forms: ED Department Discharge Additional Instructions: Continue prior facility orders Follow up if difficulty walking appearance of pain or other symptoms
== END 2018-07-28 21:15 ==
LOC: DL.ED 19:28
DX: M25.551 Pain in right hip (principal); M25.552 Pain in left hip; E78.00 Pure hypercholesterolemia, unspecified; J44.9 Chronic obstructive pulmonary disease, unspecified; F41.9 Anxiety disorder, unspecified; F32.9 Major depressive disorder, single episode, unspecified; D50.9 Iron deficiency anemia, unspecified; Z79.899 Other long term (current) drug therapy; W18.40XA Slipping, tripping and stumbling without falling, unspecified, initial encounter
CPT/HCPCS: 72192; 99283-25

== ENCOUNTER 2018-11-13 13:00 | Emergency (ER) | payer MEDICARE, MEDICAID ==
[2018-11-13 13:42] VITALS: BP 123/89
[2018-11-13] MEDS ORDERED: Clindamycin HCl 150 MG Cap PO ONE (14:18)
--- NOTE | 2018-11-13 14:27 | EDM.PDOC ---
Scribed by Claudine Adame 11/13/18 1013 for Dell Santa MD ED HPI GENERAL MEDICAL PROBLEM - General Chief Complaint: Respiratory Problem Stated Complaint: BAD COUGH Time Seen by Provider: 11/13/18 13:43 Source of Information: Reports: Patient, RN, RN Notes Reviewed, Other (Jail staff) History Limitations: Reports: Other (mental retardation) - History of Present Illness INITIAL COMMENTS - FREE TEXT/NARRATIVE: Patient presents to ER with complaint of shortness of breath, cough and crackles at the right base. The caregiver states that he vomited once today and may have aspirated. No documented fevers. No report of wheezing or difficulty breathing. Pt is unable to provide any history. Onset: Gradual Duration: Getting Worse Location: Reports: Chest Quality: Reports: Ache Severity: Moderate Improves with: Reports: None Worsens with: Reports: None Associated Symptoms: Reports: No Other Symptoms - Related Data Allergies Allergy/AdvReac Type Severity Reaction Status Date / Time No Known Allergies Allergy Verified 11/13/18 13:58 Home Meds: Home Meds Omeprazole 20 mg PO ACBREAKFAST 06/12/14 [History] Albuterol [Proventil Neb Soln] 2.5 mg NEB Q4H PRN 03/05/16 [History] Budesonide [Pulmicort] 2 ml INH BEDTIME 03/05/16 [History] Acetaminophen [Pain & Fever] 1,000 mg PO BID 05/03/18 [History] Calcium Carbonate/Vitamin D3 [Caltrate 600+D 1500 MG-400 Units] 1 tab PO BIDMEALS 05/03/18 [History] Leuprolide [Lupron Depot 4-Month] 30 mg IM .[id number] 05/03/18 [History] Trospium Chloride 20 mg PO BID 05/03/18 [History] Amoxicillin/Potassium Clav [Augmentin 875-125 Tablet] 1 each PO BID 7 Days #14 tablet 05/06/18 [Rx] Past Medical History HEENT History: Reports: Impaired Vision Cardiovascular History: Reports: High Cholesterol Respiratory History: Reports: COPD, Pneumonia, Recurrent, TB, Other (See Below) Other Respiratory History: HX OF ASPIRIATION PNEUMONIA Gastrointestinal History: Reports: GERD Genitourinary History: Reports: Prostate Disorder Musculoskeletal History: Reports: Other (See Below) Other Musculoskeletal History: ROTATOR CUFF TEAR Neurological History: Reports: None Psychiatric History: Reports: Anxiety, Depression, Developmental Delay, Learning Disability, Other (See Below) Other Psychiatric 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 Endocrine/Metabolic History: Reports: None Hematologic History: Reports: Anemia, Iron Deficiency Immunologic History: Reports: None Oncologic (Cancer) History: Reports: Prostate Dermatologic History: Reports: None - Infectious Disease History Infectious Disease History: Reports: None Other Infectious Disease History: unknown hx - Past Surgical History Head Surgeries/Procedures: Reports: None HEENT Surgical History: Reports: Cataract Surgery GI Surgical History: Reports: Hernia, Inguinal Social & Family History - Family History Family Medical History: Noncontributory - Caffeine Use Caffeine Use: Reports: Coffee - Living Situation & Occupation Living situation: Reports: Other ED ROS GENERAL - Review of Systems Review Of Systems: Unable To Obtain (because of mental retardation) - Physical Exam Exam: See Below Exam Limited By: Other (MR) General Appearance: Alert, No Apparent Distress, Anxious Nose: Normal Inspection, No Blood Throat/Mouth: Normal Voice, No Airway Compromise Head Exam: Atraumatic, Normocephalic Neck: Normal Inspection, Full Range of Motion Respiratory/Chest: No Respiratory Distress, No Accessory Muscle Use, Crackles ( Rt base), Other (moist cough). No: Rales, Rhonchi, Wheezing Cardiovascular: Regular Rate, Rhythm, No Edema, Tachycardia GI/Abdominal: Normal Bowel Sounds, Soft, Non-Tender, No Distention Neuro Exam (Abbreviated): Alert, Oriented, No Motor/Sensory Deficits Back Exam: Normal Inspection Extremities: Normal Inspection, Normal Range of Motion Psychiatric: Anxious Skin Exam: Warm, Dry Course - Vital Signs Last Recorded V/S: Last Vital Signs Temp 97.3 F 11/13/18 13:41 Pulse 100 11/13/18 13:41 Resp 20 11/13/18 13:41 BP 123/89 11/13/18 13:41 Pulse Ox 95 11/13/18 13:41 - Orders/Labs/Meds Orders: Active Orders 24 hr Category Date Time Status Chest 1V Frontal [CR] Stat Exams 11/13/18 13:54 Taken COMPREHENSIVE METABOLIC PN,CMP [CHEM] Stat Lab 11/13/18 14:03 Received CULTURE BLOOD [BC] Stat Lab 11/13/18 14:03 Received Clindamycin HCl [Cleocin] Med 11/13/18 14:18 Once 150 mg PO ONETIME ONE Labs: Laboratory Tests 11/13/18 Range/Units 14:03 WBC 8.8 (5.0-10.0) 10^3/uL RBC 4.73 (4.6-6.2) 10^6/uL Hgb 11.5 L (14.0-18.0) g/dL Hct 37.8 L (40.0-54.0) % MCV 79.9 L D (80-100) fL MCH 24.3 L (27.0-34.0) pg MCHC 30.4 L (33.0-35.0) g/dL Plt Count 282 D (150-450) 10^3/uL Neut % (Auto) 78.0 H (42.2-75.2) % Lymph % (Auto) 13.1 L (20.5-50.1) % Liberty % (Auto) 8.0 (2-8) % Eos % (Auto) 0.6 L (1.0-3.0) % Baso % (Auto) 0.3 (0.0-1.0) % - Radiology Interpretation Free Text/Narrative:: CXR: no acute process, see Rad. report. Departure - Departure Time of Disposition: 14:25 Disposition: Home, Self-Care 01 Condition: Fair Clinical Impression: Cough Aspiration into airway Qualifiers: Encounter type: initial encounter Qualified Code(s): T17.908A - Unspecified foreign body in respiratory tract, part unspecified causing other injury, initial encounter - Discharge Information *PRESCRIPTION DRUG MONITORING PROGRAM REVIEWED*: No *COPY OF PRESCRIPTION DRUG MONITORING REPORT IN PATIENT BRINDA: No Instructions: Cough, Adult, [id number], Aspiration Pneumonia Forms: ED Department Discharge Additional Instructions: Rx: Clindamycin 300mg: Give one capsule (may give with applesauce or open and sprinkle on applesauce) by mouth 4 times a day for 10 days. Follow up in clinic in 4 to 5 days for recheck. Return to ER if any breathing difficulties develop. - My Orders Last 24 Hours: My Active Orders 11/13/18 13:54 Chest 1V Frontal [CR] Stat 11/13/18 14:03 COMPREHENSIVE METABOLIC PN,CMP [CHEM] Stat CULTURE BLOOD [BC] Stat 11/13/18 14:18 Clindamycin HCl [Cleocin] 150 mg PO ONETIME ONE - Assessment/Plan Last 24 Hours: My Active Orders 11/13/18 13:54 Chest 1V Frontal [CR] Stat 11/13/18 14:03 COMPREHENSIVE METABOLIC PN,CMP [CHEM] Stat CULTURE BLOOD [BC] Stat 11/13/18 14:18 Clindamycin HCl [Cleocin] 150 mg PO ONETIME ONE I have read and agree with the documentation that has been completed regarding this visit. By signing this record, I attest that the documentation was completed in my physical presence and is an accurate record of the encounter.
[2018-11-13 14:31] LABS: ANION GAP 10.5; CHLORIDE,CL 97 mmol/L (101-111); SODIUM,NA 132 mmol/L (135-145)
== END 2018-11-13 14:42 | disposition home or self-care (01) ==
LOC: DL.ED 13:00
DX: T17.908A Unspecified foreign body in respiratory tract, part unspecified causing other injury, initial encounter (principal); R05 Cough; K21.9 Gastro-esophageal reflux disease without esophagitis; E78.00 Pure hypercholesterolemia, unspecified; J44.9 Chronic obstructive pulmonary disease, unspecified; Z79.899 Other long term (current) drug therapy
CPT/HCPCS: 36415; 71045; 80053; 85025; 87040; 99283; A9270

== ENCOUNTER 2019-01-07 17:42 | Emergency (ER) | payer MEDICARE, MEDICAID ==
[2019-01-07 18:39] VITALS: BP 156/86; PULSE 102
--- NOTE | 2019-01-07 18:54 | EDM.PDOC ---
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 recently took over his care. Left Knee Pain Score (Numeric/FACES): 0 - Related Data Allergies Allergy/AdvReac Type Severity Reaction Status Date / Time No Known Allergies Allergy Verified 01/07/19 18:31 Home Meds: Home Meds Albuterol [Proventil Neb Soln] 2.5 mg NEB Q4H PRN 03/05/16 [History] Budesonide [Pulmicort] 2 ml INH BEDTIME 03/05/16 [History] Acetaminophen [Pain & Fever] 1,000 mg PO BID PRN 05/03/18 [History] Calcium Carbonate/Vitamin D3 [Caltrate 600+D 1500 MG-400 Units] 1 tab PO BIDMEALS 05/03/18 [History] Leuprolide [Lupron Depot 4-Month] 30 mg IM .[id number] 05/03/18 [History] Famotidine 20 mg PO BID 01/07/19 [History] Mirabegron [Myrbetriq] 50 mg PO DAILY 01/07/19 [History] Potassium Chloride [Klor-Con M20] 20 meq PO DAILY 01/07/19 [History] Vilazodone [Viibryd] 20 mg PO DAILY 01/07/19 [History] Past Medical History HEENT History: Reports: Impaired Vision Cardiovascular History: Reports: High Cholesterol Respiratory History: Reports: COPD, Pneumonia, Recurrent, TB, Other (See Below) Other Respiratory History: HX OF ASPIRIATION PNEUMONIA Gastrointestinal History: Reports: GERD Genitourinary History: Reports: Prostate Disorder Musculoskeletal History: Reports: Other (See Below) Other Musculoskeletal History: ROTATOR CUFF TEAR Neurological History: Reports: None Psychiatric History: Reports: Anxiety, Depression, Developmental Delay, Learning Disability, Other (See Below) Other Psychiatric 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 Endocrine/Metabolic History: Reports: None Hematologic History: Reports: Anemia, Iron Deficiency Immunologic History: Reports: None Oncologic (Cancer) History: Reports: Prostate Dermatologic History: Reports: None - Infectious Disease History Infectious Disease History: Reports: None Other Infectious Disease History: unknown hx - Past Surgical History Head Surgeries/Procedures: Reports: None HEENT Surgical History: Reports: Cataract Surgery GI Surgical History: Reports: Hernia, Inguinal Social & Family History - Family History Family Medical History: Noncontributory - Tobacco Use Smoking Status *Q: Never Smoker - Caffeine Use Caffeine Use: Reports: Coffee - Recreational Drug Use Recreational Drug Use: No - Living Situation & Occupation Living situation: Reports: Other Review of Systems - Review of Systems Review Of Systems: ROS reveals no pertinent complaints other than HPI. ED EXAM, GENERAL - Physical Exam Exam: See Below Exam Limited By: No Limitations General Appearance: Alert, WD/WN, No Apparent Distress, Anxious Ears: Hearing Grossly Normal Throat/Mouth: Normal Voice, No Airway Compromise Head: Atraumatic Neck: Non-Tender, Full Range of Motion Respiratory/Chest: No Respiratory Distress Cardiovascular: Regular Rate, Rhythm GI/Abdominal: Soft, Non-Tender Extremities: Other (left ankle swollen tender R/P, NV nwl, gait limited to pain. left knee tender R/P with minimal swelling) Neurological: Alert, Normal Cognition, No Motor/Sensory Deficits Psychiatric: Anxious Skin Exam: Warm, Dry, Normal Color Lymphatic: No Adenopathy Course - Vital Signs Last Recorded V/S: Last Vital Signs Temp 37.2 C 01/07/19 18:33 Pulse 102 H 01/07/19 18:33 Resp 16 01/07/19 18:33 BP 156/86 H 01/07/19 18:33 Pulse Ox 97 01/07/19 18:33 - Orders/Labs/Meds Orders: Active Orders 24 hr Category Date Time Status Ankle 2V Lt [CR] Urgent Exams 01/07/19 18:50 Taken Knee 1V or 2V Lt [CR] Urgent Exams 01/07/19 18:58 Taken - Re-Assessments/Exams Free Text/Narrative Re-Assessment/Exam: 01/07/19 19:41 results discussed with telegraph printer mechanic Departure - Departure Time of Disposition: 19:41 Disposition: Home, Self-Care 01 Condition: Good Clinical Impression: Left knee sprain Qualifiers: Encounter type: initial encounter Involved ligament of knee: unspecified ligament Qualified Code(s): S83.92XA - Sprain of unspecified site of left knee, initial encounter Left ankle sprain Qualifiers: Encounter type: initial encounter Involved ligament of ankle: deltoid ligament Qualified Code(s): S93.422A - Sprain of deltoid ligament of left ankle, initial encounter - Discharge Information Instructions: Ankle Sprain, [id number] Forms: ED Department Discharge Additional Instructions: 1) elevate left leg as much as possible next 3 days 2) see clinic Thursday for MRI SCAN of left knee and ankle 3) give tylenol or motrin as needed for pain - My Orders Last 24 Hours: My Active Orders 01/07/19 18:50 Ankle 2V Lt [CR] Urgent 01/07/19 18:58 Knee 1V or 2V Lt [CR] Urgent - Assessment/Plan Last 24 Hours: My Active Orders 01/07/19 18:50 Ankle 2V Lt [CR] Urgent 01/07/19 18:58 Knee 1V or 2V Lt [CR] Urgent
== END 2019-01-07 19:49 | disposition home or self-care (01) ==
LOC: DL.ED 17:42
DX: S83.92XA Sprain of unspecified site of left knee, initial encounter (principal); S93.422A Sprain of deltoid ligament of left ankle, initial encounter; J44.9 Chronic obstructive pulmonary disease, unspecified; K21.9 Gastro-esophageal reflux disease without esophagitis; F32.9 Major depressive disorder, single episode, unspecified; Z79.899 Other long term (current) drug therapy; Z79.51 Long term (current) use of inhaled steroids; W19.XXXA Unspecified fall, initial encounter; Y92.199 Unspecified place in other specified residential institution as the place of occurrence of the external cause
CPT/HCPCS: 73560-LT; 73600-LT; 99283-25